=== PATIENT | male | born 1965 | race Caucasian/White ===

== ENCOUNTER 2020-09-20 11:46 | Outpatient (REF) | payer OTHER, SELFPAY ==
[2020-09-20 14:04] LABS: Glucose Urine UA NEG (NEG); Leukocyte Esterase Urine NEG (NEG); Nitrite Urine NEG (NEG); Urine Blood NEG (NEG); Urine Ketones 40 MG/DL (NEG); Urine Protein NEG (NEG-TRACE)
[2020-09-20 14:05] LABS: Appearance Urine CLEAR; Color Urine AMBER
[2020-09-20 14:18] LABS: Eosinophils Absolute Auto 0.1 X10*3/uL (0.0-0.4); Imm Gran Abs Auto 0.01 X10*3/uL (0.00-0.03); Imm Gran Pct Auto 0.3 % (0.0-0.4); Lymphocytes Percent Auto 34.9 % (20-40); MANUAL DIFF FLAG SCAN; Mean Corpuscular HGB Conc 33.3 g/dl (31.0-36.0); Mean Corpuscular Hemoglobin 34.5 pg (27.0-33.0); Mean Corpuscular Volume 103.4 fL (80-98); Mean Platelet Volume 9.6 fL (9.4-12.4); Monocytes Absolute Auto 1.3 X10*3/uL (0.1-1.2); Monocytes Percent Auto 44.7 % (2-11); Neutrophils Absolute Auto 0.5 X10*3/uL (2.0-8.3); Neutrophils Percent Auto 17.1 % (45-73); Platelet Count 305 X10*3/uL (160-400); Red Blood Count 3.77 X10*6/uL (4.60-5.80); Red Cell Distribution Width 12.6 % (11.0-16.0); SCAN SMEAR FLAG 1
[2020-09-20 14:42] LABS: Alanine Aminotransferase 91 U/L (0-40); Albumin Level 4.4 g/dL (3.5-5.0); Alkaline Phosphatase 78 U/L (39-117); Amylase 188 U/L (28-100); Anion Gap 15 (12-20); Aspartate Amino Transferase 75 U/L (5-37); Bilirubin Total 1.3 mg/dL (0.0-1.0); Blood Urea Nitrogen 20 mg/dL (9-16); Calcium 9.3 mg/dL (8.4-10.2); Carbon Dioxide 21 mmol/L (22-29); Chloride 99 mmol/L (96-108); Estimated Glomerular Filt Rate > 60; Glucose Random 102 mg/dL (60-115); Lipase 35 U/L (8-78); Potassium 5.4 mmol/L (3.3-5.1); Sodium 130 mmol/L (135-145); Total Protein 7.9 g/dL (6.5-8.0)
[2020-09-20 14:46] LABS: SLIDE REVIEW VERIFIED
== END 2020-09-20 11:47 | disposition home or self-care (01) ==
LOC: HO.HMGCLDS 11:46
PROVIDERS: PCP Internal Medicine; Visit Provider Nurse Practitioner Family
DX: R10.9 Unspecified abdominal pain (principal)
CPT/HCPCS: 36415; 80053; 81003; 82150; 83690; 85025

== ENCOUNTER 2020-09-21 13:27 | Emergency (ER) | payer OTHER, SELFPAY ==
--- NOTE | ~2020-09-21 | CT_ITS ---
EXAMINATION: CT ABDOMEN AND PELVIS WITH CONTRAST CLINICAL INFORMATION: Left lower quadrant pain. Prior history diverticulitis. COMPARISON: CT abdomen and pelvis with contrast 10/09/2018, 01/27/2015 TECHNIQUE: Multidetector volumetric images were obtained from the superior aspect of the liver through the pubic symphysis following administration 85 mL of Omnipaque 350 intravenous contrast. Sagittal and coronal reformatted images were obtained on the technologist's workstation. Oral contrast: No This CT examination was performed using dose optimization techniques as appropriate, variously including the following: *Automated exposure control *Adjustment of mA and/or kV according to patient size (this includes techniques or standardized protocols for targeted exams where dose is matched to indication/reason for exam; i.e. extremities or head) *Use of iterative reconstruction technique DLP: 757 mGy-cm FINDINGS: LUNG BASES: The visualized lung bases are unremarkable. LIVER, GALLBLADDER, AND BILIARY TREE: Liver is normal in size and smooth in contour and homogeneous. There is diffuse hepatic steatosis. No focal hepatic parenchymal lesion or intrahepatic ductal dilatation. The gallbladder is unremarkable with no evidence of radiopaque gallstones, gallbladder wall thickening, or obvious pericholecystic inflammatory changes. PANCREAS: Unremarkable. SPLEEN: Unremarkable. ADRENAL GLANDS: Unremarkable. KIDNEYS AND URETERS: The kidneys are normal in size and enhance symmetrically. There are no calculi, hydronephrosis, hydroureter, or perinephric stranding. Again, there is a cyst left kidney 2.0 x 2.5 cm and punctate cyst right kidney. BLADDER: Unremarkable. GASTROINTESTINAL TRACT: There is mild inflammatory change around the posterior distal descending diverticula left lower quadrant (series 367, sagittal images 33-39). This is in same area of prior diverticulitis. There is no paracolic fluid collection, proximal obstruction, pneumatosis, free air, or ascites. The appendix is unremarkable. ABDOMINAL WALL: Borderline fat-containing umbilical hernia under 3 cm. Fatty fullness inguinal spermatic rings, greater on left. LYMPH NODES: No lymphadenopathy. VASCULAR: Unremarkable. PELVIC VISCERA: Unremarkable. OSSEOUS STRUCTURES: Unremarkable. CT/CT abdomen pelvis w con IMPRESSION: 1. Mild diverticulitis distal descending colon in similar area of prior episodes. 2. No proximal obstruction, pericolic fluid, or ascites.
[2020-09-21 13:29] VITALS: BP 148/85; PULSE 101; RESP 16; TEMP 37.1; O2SAT 98; BMI 32.1
--- NOTE | 2020-09-21 13:42 | ED_ITS ---
HPI - Abdominal Pain General Chief Complaint: Abdominal Pain Stated Complaint: diverticulitis Time Seen by Provider: 09/21/20 13:33 Source: patient and old records reviewed Mode of arrival: ambulatory Limitations: no limitations History of Present Illness HPI narrative: 55 yo male with recurrent diverticulitis started on flagyl/levofloxacin yesterday able to tolerate and take today referred to ED by urgent care center for CT scan c/o pain and diarrhea MD elicited complaint: abdominal pain Pertinent past history: diverticulitis Onset (ago): day(s) (4) Pain Consistency: constant Location: LLQ Severity: moderate Quality: aching Radiation: LLQ Migration to: no migration Exacerbating factors: movement Relieving factors: nothing Context: history of similar episodes Associated symptoms: diarrhea Treatments prior to arrival: other (took flagyl and levofloxacin today ) Related Data Previous Rx's Medication Instructions Recorded lisinopril 40 mg tablet 40 mg PO DAILY #90 tab 05/23/20 levofloxacin 750 mg tablet 750 mg PO DAILY 10 Days #10 tab 09/20/20 metronidazole 500 mg tablet 500 mg PO BID 10 Days #20 tab 09/20/20 Allergies Allergy/AdvReac Type Severity Reaction Status Date / Time No Known Allergies Allergy Unverified 09/20/20 11:18 Review of Systems Review of Systems Constitutional : No Weight loss, No Fever, No Chills ENT/Mouth : No sore throat, No Rhinorrhea Eyes: No Swelling, No Redness Cardiovascular : No Chest Pain, No SOB, NoEdema Respiratory : No Cough, No Sputum, No Wheezing Gastrointestinal : no Nausea, no Vomiting, positive Diarrhea, positive abdominal Pain, No Hematochezia, No Melena Genitourinary : No Dysuria, No Urinary Frequency, No Hematuria, No Urgency Musculoskeletal : No joint pain, No Myalgias, No Joint Swelling Skin : No Skin Lesions, No rash Neuro : No Weakness, No Numbness, No Dizziness, No Headache Psych : No Anxiety/Panic, No Depression Heme/Lymph: No Bruising, No Lymphadenopathy Endocrine : No Polyuria, No Polydipsia All other systems reviewed and are negative. Physical Exam Vital Signs: Vital Signs: Last Vital Signs Temp 99.3 F 09/21/20 14:26 Pulse 97 09/21/20 14:26 Resp 16 09/21/20 14:26 BP 112/73 09/21/20 14:26 Pulse Ox 97 09/21/20 14:26 Body Mass Index 32.1 Appearance: Alert. Oriented X3. No acute distress. Eyes: Pupils equal, round and reactive to light. ENT: Pharynx normal. Neck: Normal inspection. Neck supple. CVS: Normal heart rate and rhythm. Pulses normal. Respiratory: No respiratory distress. Breath sounds normal. Abdomen: Soft and moderate LLQ ttp no rebound or guarding Skin: Skin warm and dry. Normal skin color. Normal skin turgor. Extremities: No lower extremity edema. No calf ttp Neuro: Oriented X 3. No motor deficit. No sensory deficit. Course Course Course Narrative: low Na drinks excessive water thought it wsa a good thing, also has been drinking ETOH likely cause of LFTs - discussed abstaining as well as flagyl reaction, no WBC count afebrile not toxic, mild diverticulitis can continue outpatient care MDM - Abdominal Pain MDM Narrative Medical decision making narrative: 55 yo male hx of recurrent diverticulitis already on antibiotics at this time will repeat labs, CT scan to evaluate extent of disease, deferred pain medications - dispo per results and findings. Lab Data Result diagrams: 09/21/20 14:14 09/21/20 14:13 Labs: Lab Results 09/21/20 09/21/20 09/21/20 Range/Units 14:13 14:13 14:13 WBC (4.8-10.8) X10*3/uL RBC (4.60-5.80) X10*6/uL Hgb (14.0-18.0) g/dl Hct (42-52) % MCV (80-98) fL MCH (27.0-33.0) pg MCHC (31.0-36.0) g/dl RDW (11.0-16.0) % Plt Count (160-400) X10*3/uL MPV (9.4-12.4) fL Immature Gran % (Auto) (0.0-0.4) % Neut % (Auto) (45-73) % Lymph % (Auto) (20-40) % [place] % (Auto) (2-11) % Eos % (Auto) (0-4) % Baso % (Auto) (0-2) % Lymph # (Auto) (1.2-4.9) X10*3/uL [place] # (Auto) (0.1-1.2) X10*3/uL Eos # (Auto) (0.0-0.4) X10*3/uL Baso # (Auto) (0.0-0.2) X10*3/uL Abs Immat Gran (auto) (0.00-0.03) X10*3/uL Absolute Neuts (auto) (2.0-8.3) X10*3/uL Absolute Nucleated RBC (0.0-0.012) X10*3/uL Nucleated RBC % (auto) (0.0-0.2) /100WBC Smear Tech's Comments Hold Blue Top SEE NOTE Sodium 131 L (135-145) mmol/L Potassium 4.8 (3.3-5.1) mmol/L Chloride 101 (96-108) mmol/L Carbon Dioxide 21 L (22-29) mmol/L Anion Gap 14 (12-20) BUN 17 H (9-16) mg/dL Creatinine 1.02 (0.5-1.4) mg/dL Estim Creat Clear Calc 99.4 Estimated GFR > 60 Random Glucose 112 (60-115) mg/dL Lactic Acid 1.1 (0.5-2.0) mmol/L Calcium 8.9 (8.4-10.2) mg/dL Total Bilirubin 1.3 H (0.0-1.0) mg/dL Direct Bilirubin 0.8 H (0.0-0.5) mg/dL AST 48 H (5-37) U/L ALT 71 H (0-40) U/L Alkaline Phosphatase 70 (39-117) U/L Total Protein 7.6 (6.5-8.0) g/dL Albumin 4.1 (3.5-5.0) g/dL Lipase 29 (8-78) U/L 03// Range/Units 14:14 WBC 2.8 L (4.8-10.8) X10*3/uL RBC 3.69 L (4.60-5.80) X10*6/uL Hgb 13.0 L (14.0-18.0) g/dl Hct 37.5 L (42-52) % MCV 101.6 H (80-98) fL MCH 35.2 H (27.0-33.0) pg MCHC 34.7 (31.0-36.0) g/dl RDW 12.5 (11.0-16.0) % Plt Count 239 (160-400) X10*3/uL MPV 8.8 L (9.4-12.4) fL Immature Gran % (Auto) 0.0 (0.0-0.4) % Neut % (Auto) 19.7 L (45-73) % Lymph % (Auto) 31.3 (20-40) % [place] % (Auto) 46.5 H (2-11) % Eos % (Auto) 1.8 (0-4) % Baso % (Auto) 0.7 (0-2) % Lymph # (Auto) 0.9 L (1.2-4.9) X10*3/uL [place] # (Auto) 1.3 H (0.1-1.2) X10*3/uL Eos # (Auto) 0.1 (0.0-0.4) X10*3/uL Baso # (Auto) 0.0 (0.0-0.2) X10*3/uL Abs Immat Gran (auto) 0.00 (0.00-0.03) X10*3/uL Absolute Neuts (auto) 0.6 L (2.0-8.3) X10*3/uL Absolute Nucleated RBC 0.000 (0.0-0.012) X10*3/uL Nucleated RBC % (auto) 0.0 (0.0-0.2) /100WBC Smear Tech's Comments VERIFIED Hold Blue Top Sodium (135-145) mmol/L Potassium (3.3-5.1) mmol/L Chloride (96-108) mmol/L Carbon Dioxide (22-29) mmol/L Anion Gap (12-20) BUN (9-16) mg/dL Creatinine (0.5-1.4) mg/dL Estim Creat Clear Calc Estimated GFR Random Glucose (60-115) mg/dL Lactic Acid (0.5-2.0) mmol/L Calcium (8.4-10.2) mg/dL Total Bilirubin (0.0-1.0) mg/dL Direct Bilirubin (0.0-0.5) mg/dL AST (5-37) U/L ALT (0-40) U/L Alkaline Phosphatase (39-117) U/L Total Protein (6.5-8.0) g/dL Albumin (3.5-5.0) g/dL Lipase (8-78) U/L Discharge Plan Discharge Clinical Impression: Diverticulitis, Elevated liver function tests Patient Disposition: Home, Self-Care Instructions: Diverticulitis (ED) Additional Instructions: return to ED for any worsening symptoms or concerns stop drinking alcohol, RECHECK chemistry in 5 days continue antibiotics you only need to drink about 64 ounces of water a day Prescriptions: No Action lisinopril 40 mg tablet 40 mg PO DAILY Qty: 90 RF: 3 metronidazole 500 mg tablet 500 mg PO BID 10 Days Qty: 20 RF: 0 levofloxacin 750 mg tablet 750 mg PO DAILY 10 Days Qty: 10 RF: 0 Referrals: Etta Bocanegra MD [Primary Care Provider] - 5 days Stand Alone Forms: Work/School Release [facility] Past Medical History Attestation statement: The following information was validated with the patient. Medical History Diverticulitis HTN (hypertension) Social History Social History (Updated 09/21/20 @ 13:49 by Bernadette Guardado DO) Alcohol intake: current Alcohol intake frequency: 0-2 drinks per day Alcohol type: beer and hard liquor Smoking Status: Never smoker Use of substances other than those prescribed or required for medical reasons: No Advance Directives: No Advance Directives Information Provided: No
[2020-09-21 14:21] LABS: Basophils Percent Auto 0.7 % (0-2); Eosinophils Absolute Auto 0.1 X10*3/uL (0.0-0.4); Eosinophils Percent Auto 1.8 % (0-4); Lymphocytes Absolute Auto 0.9 X10*3/uL (1.2-4.9); Lymphocytes Percent Auto 31.3 % (20-40); MANUAL DIFF FLAG SCAN; Mean Corpuscular HGB Conc 34.7 g/dl (31.0-36.0); Mean Corpuscular Hemoglobin 35.2 pg (27.0-33.0); Mean Corpuscular Volume 101.6 fL (80-98); Mean Platelet Volume 8.8 fL (9.4-12.4); Monocytes Absolute Auto 1.3 X10*3/uL (0.1-1.2); Monocytes Percent Auto 46.5 % (2-11); Neutrophils Absolute Auto 0.6 X10*3/uL (2.0-8.3); Neutrophils Percent Auto 19.7 % (45-73); Platelet Count 239 X10*3/uL (160-400); Red Blood Count 3.69 X10*6/uL (4.60-5.80); Red Cell Distribution Width 12.5 % (11.0-16.0); SCAN SMEAR FLAG 1; White Blood Count 2.8 X10*3/uL (4.8-10.8)
[2020-09-21 14:25] LABS: Hematocrit 37.5 % (42-52)
[2020-09-21 14:26] VITALS: BP 112/73; PULSE 97; RESP 16; TEMP 37.4; O2SAT 97
[2020-09-21] MEDS: 0.9 % Sodium Chloride 1,000 ML 999 ML IVCONT (14:33)
[2020-09-21 14:41] LABS: Lactic Acid 1.1 mmol/L (0.5-2.0)
[2020-09-21 14:45] LABS: SLIDE REVIEW VERIFIED
[2020-09-21 14:48] LABS: Alanine Aminotransferase 71 U/L (0-40); Albumin Level 4.1 g/dL (3.5-5.0); Alkaline Phosphatase 70 U/L (39-117); Anion Gap 14 (12-20); Aspartate Amino Transferase 48 U/L (5-37); Bilirubin Direct 0.8 mg/dL (0.0-0.5); Bilirubin Total 1.3 mg/dL (0.0-1.0); Blood Urea Nitrogen 17 mg/dL (9-16); Calcium 8.9 mg/dL (8.4-10.2); Carbon Dioxide 21 mmol/L (22-29); Chloride 101 mmol/L (96-108); Creatinine Clr Calc Pharmacy 99.4; Estimated Glomerular Filt Rate > 60; Glucose Random 112 mg/dL (60-115); Lipase 29 U/L (8-78); Potassium 4.8 mmol/L (3.3-5.1); Sodium 131 mmol/L (135-145); Total Protein 7.6 g/dL (6.5-8.0)
--- NOTE | 2020-09-21 14:58 | PC.NURSE ---
pt to ct scan
[2020-09-21] MEDS: iohexoL 350 MG/ML 100 ML INFUS..BTL IV (15:07)
--- NOTE | 2020-09-21 15:22 | PC.NURSE ---
pt alert and oriented x3. lung sounds clear bilaterally no signs of respiratory distress noted, respiratory effort is non-labored, depth and rate normal, heart rate and heart sounds normal, bowel sounds active x4, abdominal inspection showed no discoloration, no deformities or distention. pt denies n/v. pt states he does not have any pain at rest but when he palpates his lower left quadrant he has 5/10 pain. pt refused IV morphine and IV zofran, 20g in right hand inserted using vein scanner, normal saline 1L infusing by gravity. bedside junior sales assistant applied, normal sinus rhythm noted. pt instructed that if his pain increases to make RN aware. pt currently resting comfortably in bed in semi fowlers. call liu in reach. aware.
--- NOTE | 2020-09-21 16:10 | PC.NURSE ---
second set of blood cultures obtained
[2020-09-21 16:33] LABS: COVID-19 Test Negative (Negative)
== END 2020-09-21 16:23 | disposition home or self-care (01) ==
PROVIDERS: Emergency Provider Emergency Medicine; PCP Internal Medicine
DX: K57.32 Diverticulitis of large intestine without perforation or abscess without bleeding (principal); R79.89 Other specified abnormal findings of blood chemistry; Z20.822 Contact with and (suspected) exposure to COVID-19; F10.988 Alcohol use, unspecified with other alcohol-induced disorder; I10 Essential (primary) hypertension; Z79.899 Other long term (current) drug therapy
CPT/HCPCS: 36415; 74177; 80048; 80076; 83605; 83690; 85025; 87040; 87635; 96360; 96361; 99284; 99285; Q9967

== ENCOUNTER → 2020-10-27 08:26 | Outpatient (BNVA) | payer OTHER, SELFPAY | PROVIDERS: PCP Internal Medicine; Visit Provider Surgery ==

== ENCOUNTER 2020-12-27 06:20 | Inpatient (IN) | payer OTHER, SELFPAY ==
[2020-12-22 10:25] VITALS: BMI 31.4
--- NOTE | 2020-12-22 14:39 | P.CONAN_ITS ---
Documented by User: Mary Cruz 12/22/20 14:42 HPI - Anesthesia Eval Consult details Narrative: 55yo M for Hand Assisted Laparoscopic Sigmoidectomy Colectomy Repeat labs DOS. Low Na in ED (was drinking excessive water and instructed to limit to 64 oz by ED MD) PMFSH Active Problems Active Problems: All Active Problems (Updated 12/22/20 @ 10:25 by Evelyn Worley) Abdominal pain (Acute) Sigmoid diverticulitis (Acute) Past Medical History Medical History COVID-19 vaccine series completed Diverticulitis HTN (hypertension) Mild heartburn Sigmoid diverticulitis Family History Family History Father Liver cancer Skin cancer Surgical History Surgical History Hx of colonoscopy S/P excision of lipoma S/P right knee arthroscopy Social History Social History Are you a primary care coordination manager to a significant other at home: No Do you presently have visiting nurse or other home services: No Alcohol intake: current Alcohol intake frequency: a few times a week Alcohol type: beer and hard liquor Patient Tobacco Use Status: Former Tobacco user Quit Date: 20 years ago Tobacco use type: Cigarette Use of substances other than those prescribed or required for medical reasons: No Have you been hit, kicked, punched, or otherwise hurt by someone within the past year? If so, by whom?: No Are you DNR?: No Advance Directives: No Advance Directives Information Provided: No Advance Directives on File: No Recently lost weight without trying: No Eating poorly because of decreased appetite: No Nutrition Risks: No Nutritional Risk Meds Allergies Allergy/AdvReac Type Severity Reaction Status Date / Time No Known Allergies Allergy Verified 12/27/20 06:17 Exam Exam Date and Time: December 22, 2020 1439 Height,Weight and Vital Signs: Height 5 ft 11 in Weight 102.058 kg Narrative Narrative: EKG 09/2020 NSR Assessment and Plan Assessment Anesthesia Assessment: Chart Reviewed Documented by User: Mariela Rascon 12/27/20 07:09 PMF Past Medical History Medical History COVID-19 vaccine series completed Diverticulitis HTN (hypertension) Mild heartburn Sigmoid diverticulitis Family History Family History Father Liver cancer Skin cancer Surgical History Surgical History Hx of colonoscopy S/P excision of lipoma S/P right knee arthroscopy Social History Social History Are you a primary care coordination manager to a significant other at home: No Do you presently have visiting nurse or other home services: No Alcohol intake: current Alcohol intake frequency: a few times a week Alcohol type: beer and hard liquor Patient Tobacco Use Status: Former Tobacco user Quit Date: 20 years ago Tobacco use type: Cigarette Use of substances other than those prescribed or required for medical reasons: No Have you been hit, kicked, punched, or otherwise hurt by someone within the past year? If so, by whom?: No Are you DNR?: No Advance Directives: No Advance Directives Information Provided: No Advance Directives on File: No Recently lost weight without trying: No Eating poorly because of decreased appetite: No Nutrition Risks: No Nutritional Risk Meds Allergies Allergy/AdvReac Type Severity Reaction Status Date / Time No Known Allergies Allergy Verified 12/27/20 06:17 Exam Airway Mallampati Class: II TM Dist: >3cm Neck ROM: Full Assessment and Plan Assessment Anesthesia Assessment: Anesthesia Plan Discussed Final Anesthetic Review NPO: Yes ASA Class: II Final Preanesthetic Review: No Changes in Pt Med Stat, Meds/Allgs Chart Reviewed, Consent Obtained/Reviewed and Anes Risks/Benef Reviewed Patient Risk: Low Procedure Risk: Intermediate Assessment/Block/Sedation in SS: Assess/Block/Sedation-SS Anesthetic Plan Anesthetic Plan: GA Disposition: Standard PACU
[2020-12-27] VITALS (13 sets, daily range): BP systolic 93–149; BP diastolic 51–70; PULSE 47–77; RESP 12–20; TEMP 36.1–36.9; O2SAT 93–98
[2020-12-27 06:40] LABS: Hematocrit 45.4 % (42-52); Hemoglobin 15.5 g/dl (14.0-18.0); Mean Corpuscular HGB Conc 34.1 g/dl (31.0-36.0); Mean Corpuscular Hemoglobin 35.8 pg (27.0-33.0); Mean Corpuscular Volume 104.8 fL (80-98); Mean Platelet Volume 9.1 fL (9.4-12.4); Platelet Count 276 X10*3/uL (160-400); Red Blood Count 4.33 X10*6/uL (4.60-5.80); Red Cell Distribution Width 12.2 % (11.0-16.0); White Blood Count 3.2 X10*3/uL (4.8-10.8)
[2020-12-27 06:59] LABS: Anion Gap 15 (12-20); Blood Urea Nitrogen 21 mg/dL (9-16); Carbon Dioxide 19 mmol/L (22-29); Chloride 103 mmol/L (96-108); Estimated Glomerular Filt Rate 48; Glucose Fasting 90 mg/dL (60-99); Potassium 4.9 mmol/L (3.3-5.1); Sodium 132 mmol/L (135-145)
[2020-12-27] MEDS: Lactated Ringers 1,000 ML 100 ML IVCONT (07:01)
[2020-12-27 07:13] LABS: COVID-19 Test Negative (Negative)
--- NOTE | 2020-12-27 07:14 | MHC.SHP ---
Pre-Procedural Eval Section A The patient is an INPATIENT: No Changes since office visit: Yes Patient answered all questions; No Cold of Flu in the past 2 weeks, No New Medical Problems and No Changes in Medication The History & Physical has been completed within 30 days and I have reviewed it.: No Section B Chief Complaint: s/p Sigmoid colectomy Details of Present Illness: recurrent episodes of sigmoid diverticulitis requiring IV and PO antibiotics presenting today for a hand assisted laparoscopic sigmoid colectomy Relevant Family History (Specify if Yes): No Relevant Social History: None Present Medications: see Short Stay Collaborative assessment Medical History: No relevant PMH History of Previous Operations: No relevant previous surgery Allergies: Allergies Allergy/AdvReac Type Severity Reaction Status Date / Time No Known Allergies Allergy Verified 12/27/20 06:17 Review of Systems Sugical H&P ROS: Negative: Constitution, Cardiovascular, Respiratory, Neurological, Psychiatric, Hem-Onc, Allergic/Immunologic, Gastrointestinal, Genitourinary, Musculoskeletal, Integumentary, Endocrine and Eyes/Ears/Nose/Throat Exam Surgical H&P Exam: Normal: HEENT, Normal: Heart, Normal: Lungs, Normal: Extremities, Normal: Abdomen, Normal: Skin and Normal: Neurological Plan Diagnosis/Plan: Unchanged I have reviewed the history and physical and performed a pertinent physical examination on my patient. No changes have occurred unless specified.
--- NOTE | 2020-12-27 10:45 | W.PM.OPN ---
Operative Note Operative Note Date of Service: 12/27/20 Narrative: Preoperative diagnosis: Sigmoid diverticulitis Postoperative diagnosis: Same Procedure: Hand assisted laparoscopic sigmoid resection, mobilization of splenic flexure laparoscopic, colorectal anastomosis Surgeon: Byron Arriaga MD Mineral Surveyor: Alfred Esposito MD Anesthesia: General endotracheal Indications for procedure: 55-year-old male patient with repeated episodes of sigmoid diverticulitis requiring hospital admission IV antibiotics presenting now for elective sigmoid resection. Patient underwent CT of the abdomen and pelvis which revealed a small area of chronic changes without abscess suggestive of sigmoid diverticulitis. Operative findings: Patient found to have an area at the distal descending proximal sigmoid colon with thickened wall densely adherent to the sidewall consistent with chronic sigmoid diverticulitis. No abscess was identified. Specimen: Sigmoid colon Estimated blood loss: 50 mL Complications: None Procedure details: Patient was brought to the OR and placed in a supine position. After administering general anesthesia the patient's abdomen was prepped with ChloraPrep and draped in a sterile fashion. A surgical time-out was called the consent confirmed. Patient received preoperative antibiotics and Venodyne boots were in place. Local anesthesia consisting of 0.25% Sensorcaine with epinephrine was infiltrated in the lower midline. A 7.5 cm incision was made in the lower midline just above the pubis. This was carried out through subcutaneous tissue past linea alba into the peritoneum. A hand port was then inserted and the abdomen insufflated to a pressure of 15 mm of mercury. A 12 mm trocar was then placed in the upper midline and a 5 mm trocar placed in the left upper quadrant. The patient was rotated to a right lateral decubitus position. Dissection was begun on sigmoid colon and descending colon along the white line of Toldt. This was mobilized using the LigaSure extending up towards the splenic flexure. Hemostasis was assured using the LigaSure. The omentum was dissected off the distal transverse colon to enter the lesser sac and mobilized the splenic flexure from proximal to distal. This was then continued around the splenic flexure down the left gutter. Dissection was continued down along the sigmoid colon to removed from the densely adherent sidewall. This was then continued down to the sacral prominence. An area is slightly proximal to the area of sigmoid diverticulitis was dissected below the mesentery approximately 5 cm proximal. An Endo-MOY stapler was then used to divide the bowel proximal to the areas sigmoid diverticulitis. LigaSure was then used to divide the mesentery along the sigmoid colon down to the sacral prominence. This was continued down to the proximal rectum at which point a curved linear stapler was used to divide and cut the bowel. This was sent as specimen labeled as sigmoid colon. At this point the descending colon was checked for length to allow for relaxed anastomosis. Additional dissection along the left line of Toldt was performed to assure a relax anastomosis. At this point a pursestring was placed using the pursestring clamp. The bowel was incised using EEA sizers. A 28 Upper Sorbian was determined to be the appropriate size. The staple was then obtained and the anvil placed in the descending colon. The pursestring was then tied off. Overlying fatty tissue was dissected off bowel. Dr. Esposito then dilated the rectum using the EEA sizers. The EEA stapler was then inserted up the rectum and found to easily reach the staple line. The spike was passed just below the staple line and connected to the anvil. Dr. Esposito was then fired the stapler to create the and had anastomosis. A leak test was then performed by instilling air into the rectum with saline in the pelvis. No leak could be identified. Wounds were then checked for bleeding, irrigated and suctioned dry. CO2 was then evacuated and all trocars removed. Peritoneum was then closed using a running 0 Polysorb suture. Fascia was closed using a 1 Maxon suture in a running fashion. The 12 mm port site was fascia was closed using a 0 Polysorb suture. Skin was closed in all incisions using a skin stapler. Sterile dressings were then applied. The patient tolerated the procedure well. Sponge, instrument, needle counts reported as correct. The patient was transferred to PACU in stable condition.
[2020-12-27] MEDS: HYDROmorphone HCl 0.5 MG/0.5 ML SYRINGE IVPUSH ×2 (10:56→11:04)
[2020-12-27] MEDS: Dextrose 5 % and Lactated Ring 1,000 ML 125 ML IVCONT ×2 (12:51→20:55)
[2020-12-27] MEDS: oxyCODONE HCl Immed Release 5 MG TABLET PO ×2 (13:32→23:54)
[2020-12-27] MEDS: 0.9 % Sodium Chloride Flush 3 ML SYRINGE IVFLUSH (23:53)
[2020-12-28] VITALS (9 sets, daily range): BP systolic 107–128; BP diastolic 64–85; PULSE 52–65; RESP 14–20; TEMP 36.1–36.7; O2SAT 94–96
[2020-12-28] MEDS: Dextrose 5 % and Lactated Ring 1,000 ML 125 ML IVCONT ×3 (06:14→20:58)
[2020-12-28 06:49] LABS: Basophils Percent Auto 0.3 % (0-2); Eosinophils Percent Auto 0.7 % (0-4); Hematocrit 39.1 % (42-52); Hemoglobin 13.4 g/dl (14.0-18.0); Imm Gran Abs Auto 0.01 X10*3/uL (0.00-0.03); Imm Gran Pct Auto 0.3 % (0.0-0.4); Lymphocytes Absolute Auto 0.9 X10*3/uL (1.2-4.9); Lymphocytes Percent Auto 29.3 % (20-40); MANUAL DIFF FLAG SCAN; Mean Corpuscular HGB Conc 34.3 g/dl (31.0-36.0); Mean Corpuscular Hemoglobin 36.5 pg (27.0-33.0); Mean Corpuscular Volume 106.5 fL (80-98); Mean Platelet Volume 9.4 fL (9.4-12.4); Monocytes Absolute Auto 1.8 X10*3/uL (0.1-1.2); Monocytes Percent Auto 58.9 % (2-11); Neutrophils Absolute Auto 0.3 X10*3/uL (2.0-8.3); Neutrophils Percent Auto 10.5 % (45-73); Platelet Count 274 X10*3/uL (160-400); Red Blood Count 3.67 X10*6/uL (4.60-5.80); SCAN SMEAR FLAG 1
[2020-12-28 07:07] LABS: Anion Gap 14 (12-20); Blood Urea Nitrogen 13 mg/dL (9-16); Calcium 9.3 mg/dL (8.4-10.2); Carbon Dioxide 21 mmol/L (22-29); Chloride 102 mmol/L (96-108); Creatinine Clr Calc Pharmacy 116.6; Estimated Glomerular Filt Rate > 60; Glucose Random 129 mg/dL (60-115); Sodium 132 mmol/L (135-145)
[2020-12-28 07:21] LABS: SLIDE REVIEW VERIFIED
[2020-12-28] MEDS: Morphine Sulfate 2 MG/ML CARTRIDGE 4 MG IVPUSH ×2 (07:43→17:27)
[2020-12-28] MEDS: lisinopriL 40 MG TABLET PO (08:34)
[2020-12-28] MEDS: oxyCODONE HCl Immed Release 5 MG TABLET PO ×2 (08:50→23:28)
--- NOTE | 2020-12-28 09:15 | PM.PNGS ---
Subjective Subjective Date of Service: 12/28/20 Interval history: Pod 1 status post hand assisted laparoscopic sigmoid colectomy for sigmoid diverticulitis. He reports an improvement in his abdominal pain this morning and is mainly been taking IV Tylenol. He has not taken morphine. Reports passing a small amount of flatus this morning. Denies nausea or vomiting he is tolerating clear liquids but is not interested in advancing his diet just yet. Physical Exam Vital Signs: Vital Signs: Last Vital Signs Temp 98.1 F 12/28/20 07:44 Pulse 62 12/28/20 08:34 Resp 18 12/28/20 07:44 BP 128/85 12/28/20 08:34 Pulse Ox 96 12/28/20 07:44 Body Mass Index 31.4 Const: Other: Awake alert, in no acute distress Resp: Other: Breathing comfortably on room air, no respiratory distress GI: Other: Small amount of standing on dressings otherwise wounds are clean and intact. Abdominal distension is improved. Skin: Other: Warm, dry, no rash Extrem: Other: No edema Progress Note: A&P Assessment and plan (1) Sigmoid diverticulitis: Status: Acute Assessment and Plan: Patient is now postoperative day 1 following hand assisted laparoscopic sigmoid colectomy for sigmoid diverticulitis. He tolerated the procedure well but continues to have some abdominal discomfort. We will continue with the liquid diet. He was encouraged to ambulate and perform incentive spirometry. Monteiro catheter should be removed today which will help with ambulation. Laboratories are okay this morning. Fall Risk Details Current Medications: Current Medications Generic Name Dose Route Start Last Admin Trade Name Freq PRN Reason Stop Dose Admin Al Hydroxide/Mg Hydroxide 30 ml 12/27/20 12:29 Magnesium Hydrox/Alum Hydrox 30 Ml Oral.Susp PO Q4H PRN Heartburn/Nausea Alvimopan 12 mg 12/27/20 21:00 12/28/20 08:34 Alvimopan 12 Mg Capsule PO 01/03/21 21:01 12 mg BID MARIA C Administration Dextrose/Lactated Ringer's 1,000 mls @ 125 mls/hr 12/27/20 12:29 12/28/20 06:14 D5lr IVCONT 125 mls/hr .Q8H MARIA C Administration Lisinopril 40 mg 12/28/20 09:00 12/28/20 08:34 Lisinopril 40 Mg Tablet PO 40 mg DAILY MARIA C Administration Protocol Morphine Sulfate 4 mg 12/27/20 12:29 12/28/20 07:43 Morphine Sulfate 2 Mg/Ml Cartridge IVPUSH 4 mg Q3H PRN Administration Pain, Severe (Pain Scale 7-10) Ondansetron HCl 4 mg 12/27/20 12:29 Ondansetron Hcl 4 Mg/2 Ml Vial IVPUSH Q8H PRN Nausea Oxycodone HCl 5 mg 12/27/20 12:29 12/28/20 08:50 Oxycodone Hcl Immed Release 5 Mg Tablet PO 5 mg Q6H PRN Administration Pain, Moderate (Pain Scale 4-6 Sodium Chloride 3 ml 12/27/20 16:00 12/28/20 07:19 0.9 % Sodium Chloride Flush 3 Ml Syringe IVFLUSH Not Given QSHIFT MARIA C Temazepam 15 mg 12/27/20 12:29 Temazepam 15 Mg Capsule PO BEDTIME PRN Insomnia Time Spent With Patient Time: Total time spent is greater than 50% in coordination of care (as documented) at patient's floor/unit and/or counseling patient: Time with patient: 15 - 24 minutes Procedures Date of Service Date of Service: 12/28/20
--- NOTE | 2020-12-28 09:51 | HO.POSTANES ---
Post Anesthesia Evaluation Post Anesthesia Evaluation Vital Signs: Vital Signs Temp Pulse Resp BP Pulse Ox 12/28/20 08:34 62 128/85 12/28/20 07:44 98.1 F 60 18 107/73 96 12/28/20 07:43 19 12/28/20 00:00 97.2 F 59 15 125/75 95 Anesthesia: General Endotracheal-GETA Mental Status: Awake Pain Control: Satisfactory Nausea/Vomiting: None Hydration: Adequate Anesthesia-Related Issues: No Anes. Related Issues
--- NOTE | 2020-12-28 11:30 | PC.NURSE ---
Patient connors catether removed this morning at 0730, patient has voided two times since then. Will continue to monitor urine output.
[2020-12-29 03:26] VITALS: BP 110/79; PULSE 55; RESP 15; TEMP 36.3; O2SAT 97
[2020-12-29] MEDS: Dextrose 5 % and Lactated Ring 1,000 ML 125 ML IVCONT (06:10)
[2020-12-29] MEDS: oxyCODONE HCl Immed Release 5 MG TABLET PO (07:29)
[2020-12-29] MEDS: lisinopriL 40 MG TABLET PO (07:30)
[2020-12-29 07:43] VITALS: BP 107/82; PULSE 50; RESP 18; TEMP 36.2; O2SAT 97
--- NOTE | 2020-12-29 07:43 | PM.PNGS ---
Subjective Subjective Date of Service: 12/29/20 Interval history: Complains of incisional pain, but is up and ambulating well. Tolerated regular diet yesterday without nausea or vomiting. Passing flatus this morning but no BM yet. Physical Exam Vital Signs: Vital Signs: Last Vital Signs Temp 97.4 F 12/29/20 03:26 Pulse 55 12/29/20 03:26 Resp 15 12/29/20 03:26 BP 110/79 12/29/20 03:26 Pulse Ox 97 12/29/20 03:26 Body Mass Index 31.4 Const: Other: alert and oriented; no acute distress Resp: Effort & Inspection: normal respiratory effort GI: Other: non-distended Skin: Other: warm and dry, no rash Extrem: General: No edema Progress Note: A&P Assessment and plan (1) Sigmoid diverticulitis: Status: Acute Assessment and Plan: POD #2 s/p ANGELA Sigmoid colectomy with colorectal anastomosis; patient is hemodynamically stable, and tolerating a regular diet. Path confirmed diverticulitis, no malignancy. He is passing flatus but no BM yet. Encouraged ambulation, IS. D/C to home if BM. Fall Risk Details Current Medications: Current Medications Generic Name Dose Route Start Last Admin Trade Name Freq PRN Reason Stop Dose Admin Al Hydroxide/Mg Hydroxide 30 ml 12/27/20 12:29 Magnesium Hydrox/Alum Hydrox 30 Ml Oral.Susp PO Q4H PRN Heartburn/Nausea Alvimopan 12 mg 12/27/20 21:00 12/29/20 07:30 Alvimopan 12 Mg Capsule PO 01/03/21 21:01 12 mg BID MARIA C Administration Dextrose/Lactated Ringer's 1,000 mls @ 125 mls/hr 12/27/20 12:29 12/29/20 06:10 D5lr IVCONT 125 mls/hr .Q8H MARIA C Administration Acetaminophen 1,000 mg in 100 mls @ 400 mls/hr 12/28/20 12:00 12/29/20 07:04 Ofirmev IV Infused Q6H MARIA C Infusion Lisinopril 40 mg 12/28/20 09:00 12/29/20 07:30 Lisinopril 40 Mg Tablet PO 40 mg DAILY MARIA C Administration Protocol Morphine Sulfate 4 mg 12/27/20 12:29 12/28/20 17:27 Morphine Sulfate 2 Mg/Ml Cartridge IVPUSH 4 mg Q3H PRN Administration Pain, Severe (Pain Scale 7-10) Ondansetron HCl 4 mg 12/27/20 12:29 Ondansetron Hcl 4 Mg/2 Ml Vial IVPUSH Q8H PRN Nausea Oxycodone HCl 5 mg 12/27/20 12:29 12/29/20 07:29 Oxycodone Hcl Immed Release 5 Mg Tablet PO 5 mg Q6H PRN Administration Pain, Moderate (Pain Scale 4-6 Sodium Chloride 3 ml 12/27/20 16:00 12/28/20 23:58 0.9 % Sodium Chloride Flush 3 Ml Syringe IVFLUSH Not Given QSHIFT MARIA C Temazepam 15 mg 12/27/20 12:29 Temazepam 15 Mg Capsule PO BEDTIME PRN Insomnia Time Spent With Patient Time: Total time spent is greater than 50% in coordination of care (as documented) at patient's floor/unit and/or counseling patient: Time with patient: 15 - 24 minutes Procedures Date of Service Date of Service: 12/29/20
--- NOTE | 2020-12-29 11:46 | PM.DS ---
DS: Providers Provider Date of Service: 12/29/20 Date of admission: 12/27/20 06:20 Date of discharge: 12/29/20 Primary care physician: Etta Bocanegra MD Admitting clinician: Byron Arriaga Attending physician on admission: Byron Arriaga DS: Diagnosis Discharge Diagnosis (1) Sigmoid diverticulitis: Status: Acute DS: Medications Discharge Medications Home Medications: Previous Rx's Medication Instructions Recorded lisinopril 40 mg tablet 40 mg PO DAILY #90 tab 05/23/20 oxycodone 5 mg PO Q6H PRN #14 tab 12/29/20 DS: Summary Hospital Course Hospital Course: Suraj Miller is a 55-year-old male patient presenting with recurrent history of diverticulitis occurring greater than 15 years usually associated with pain in the left lower quadrant and diarrhea. He has undergone multiple courses of IV antibiotic and oral antibiotics. He reports the frequency of attacks appear to be more frequent which is affecting his lifestyle. His most recent episode required a visit to the emergency department. CT of the abdomen pelvis did reveal an area of diverticulitis without abscess, perforation, or free air. He wishes to proceed with a surgical resection because of its recurrent nature. He currently reports abdominal pain in the left lower quadrant and loose stool. He denies fever or chill. On examination patient's abdomen is soft and nondistended. There is slight tenderness to palpation of the left lower quadrant without rebound, guarding, or rigidity. No masses are appreciated. He was admitted on 12/27/2020 as a short-stay admit. He underwent a hand assisted laparoscopic sigmoid colectomy with a colorectal anastomosis. He tolerated the procedure well and remained hemodynamically stable throughout his hospitalization. He was started on clear liquids on postoperative day 0 and tolerated this well. This was advanced to a regular soft diet on postoperative day 1. patient was ambulating well complaining mainly of incisional pain. On postoperative day 2 the patient was tolerating regular diet without nausea or vomiting. He did pass a bowel movement and flatus with improvement of his abdominal pain. He was able to ambulate independently as well. Patient is discharged to home in stable condition. He was instructed to continue to avoid lifting greater than 10 lb for the next month. He should remain on a regular low residue diet. I have asked him to return approximately 1 week for staple removal. He may remove the Tegaderm in 2-3 days. He may shower with or without the Tegaderm. He should return as needed for fever, chills, nausea, vomiting, increased abdominal pain. Time Spent with Patient Time attestation: Total time spent providing and/or coordinating discharge services: Discharge coordination time: Less than 30 minutes Quality: Stroke Does the patient have a stroke diagnosis?: No Physical Exam Vital Signs: Vital Signs: Last Vital Signs Temp 97.2 F 12/29/20 07:43 Pulse 50 12/29/20 07:43 Resp 18 12/29/20 07:43 BP 107/82 12/29/20 07:43 Pulse Ox 97 12/29/20 07:43 Body Mass Index 31.4 Const Other: alert and oriented; no acute distress Resp Effort & Inspection: normal respiratory effort GI Other: non-distended Skin Other: warm and dry, no rash Extrem General: No edema DS: Data Data Completed and Pending Completed studies during hospitalization [Text1]: Pending at discharge 12/27/20 09:14 Surgical [PTH] Routine Discharge Plan Discharge Patient Disposition: Home, Self-Care Discharge Diagnosis: Sigmoid diverticulitis, s/p sigmoid colectomy Referrals: Etta Bocanegra MD [Primary Care Provider] - 1 Week Discharge Medications: New oxycodone 5 mg tablet 5 mg PO Q6H PRN (Reason: pain) Qty: 14 RF: 0 Continued lisinopril 40 mg tablet 40 mg PO DAILY Qty: 90 RF: 3 Discontinued neomycin 500 mg tablet 1 g PO TID Qty: 6 RF: 0 erythromycin 500 mg tablet 1 g PO TID Qty: 6 RF: 0 Discharge Orders: Discharge Order (Routine); Ordered 12/29/20 Ordered By: Byron Arriaga Diet: regular diet Activity on Discharge: No heavy lifting Stand Alone Forms: Patient Portal Discharge page Activity Restrictions/Additional Instructions: If the incision area is tender, you may apply an ice pack for short intervals (No more than 20 minutes on, followed by at least 20 minutes off). Do not apply heat. Do not use creams, lotions, or topical antibiotics unless instructed to do so by your surgeon. These can cause infection or allergic reaction. Ok to shower. You have jasbir closing your incision and these will be removed approximately 10-14 days after surgery. Call Your Doctor If: -Your temperature exceeds 101.5? F -You experience excessive pain or swelling -You have an unexpected reaction to medication -You have excessive bleeding -You experience continued vomiting/nausea -Your incision begins to separate -Your incision shows signs of infection such as increased redness, swelling, excessive pain, drainage (light blood or clear fluid is normal) or heat Care Plan Goals: Return to normal activity and diet Health Concerns: Sigmoid diverticulitis Plan of Treatment: Status post sigmoid colectomy Assessment: Sigmoid diverticulitis Patient Instructions: Colectomy (DC) Discharge Date/Time: 12/29/20 12:44
[2020-12-29 12:00] VITALS: RESP 20
--- NOTE | 2020-12-29 13:22 | MHC.CM.PN ---
pt dcd home no skilled servceis ordered by
== END 2020-12-29 12:44 | disposition home or self-care (01) | DRG 231 ==
LOC: HO.SSSA 06:23 → HO.S3 11:15
PROVIDERS: Nurse Practitioner; Admitting Provider Surgery; PCP Internal Medicine; Visit Provider Surgery
PROC: 0DBN0ZZ Excision of Sigmoid Colon, Open Approach (ICD-10-PCS; principal; 2020-12-27 07:30)
DX: K57.32 Diverticulitis of large intestine without perforation or abscess without bleeding (principal); Z20.822 Contact with and (suspected) exposure to COVID-19; Z87.891 Personal history of nicotine dependence; Z79.899 Other long term (current) drug therapy
CPT/HCPCS: 36415; 80048; 85025; 85027; 86850; 86900; 86901; 87635; 88307; 99024; J0131; J1100; J1170; J1885; J2250; J2270; J2405; J3010

== ENCOUNTER → 2021-01-09 11:39 | Outpatient (BNVA) | payer OTHER, SELFPAY | PROVIDERS: PCP Internal Medicine; Visit Provider Surgery ==

== ENCOUNTER → 2021-02-02 11:05 | Outpatient (BNVA) | payer OTHER, SELFPAY | PROVIDERS: PCP Internal Medicine; Referring Provider Internal Medicine; Visit Provider Surgery ==

== ENCOUNTER → 2021-02-15 11:09 | Outpatient (BNVA) | payer OTHER, SELFPAY | PROVIDERS: PCP Internal Medicine; Referring Provider Internal Medicine; Visit Provider Surgery ==

== ENCOUNTER → 2021-03-08 11:28 | Outpatient (BNVA) | payer OTHER, SELFPAY | PROVIDERS: PCP Internal Medicine; Referring Provider Internal Medicine; Visit Provider Surgery ==

== ENCOUNTER 2021-06-08 09:51 | Day surgery (SDC) | payer OTHER, SELFPAY ==
[2021-06-01 16:22] VITALS: BMI 32.1
--- NOTE | 2021-06-07 13:32 | P.CONAN_ITS ---
Documented by User: Mary Cruz NP 06/07/21 13:35 HPI - Anesthesia Eval Consult details Narrative: 55yo M for Colonoscopy s/p lap bowel resect 12/2020 PMFSH Active Problems Active Problems: All Active Problems (Updated 02/15/21 @ 11:27 by Byron Arriaga MD) Anorexia (Acute) Abdominal pain (Acute) Past Medical History Medical History COVID-19 vaccine series completed Diverticulitis HTN (hypertension) Mild heartburn Sigmoid diverticulitis Family History Family History Father Liver cancer Skin cancer Surgical History Surgical History Hx of colonoscopy S/P excision of lipoma S/P laparoscopic colectomy (12/27/20) S/P right knee arthroscopy Social History Social History Household Members Other:: self Housing: Condominium Are you a primary child care education coordinator to a significant other at home: No Do you presently have visiting nurse or other home services: No Alcohol intake: current Alcohol intake frequency: a few times a week Alcohol type: beer and hard liquor Patient Tobacco Use Status: Former Tobacco user Quit Date: 20 years ago Tobacco use type: Cigarette Use of substances other than those prescribed or required for medical reasons: No Advance Directives: No Advance Directives Information Provided: Yes Meds Allergies Allergy/AdvReac Type Severity Reaction Status Date / Time No Known Allergies Allergy Verified 03/08/21 11:41 Home Medications Medication Instructions Recorded Confirmed Last Taken Type psyllium husk 0.52 gram capsule 0.52 g PO DAILY 03/08/21 Unknown History (Metamucil) Exam Exam Date and Time: June 07, 2021 1332 Height,Weight and Vital Signs: Height 5 ft 11 in Weight 104.326 kg Assessment and Plan Assessment Anesthesia Assessment: Chart Reviewed Documented by User: Loni Funez MD 06/08/21 10:26 PMFSH Past Medical History Medical History COVID-19 vaccine series completed Diverticulitis HTN (hypertension) Mild heartburn Sigmoid diverticulitis Family History Family History Father Liver cancer Skin cancer Surgical History Surgical History Hx of colonoscopy S/P excision of lipoma S/P laparoscopic colectomy (12/27/20) S/P right knee arthroscopy History of Problems with Anesthesia: No Social History Social History Household Members Other:: self Housing: Condominium Are you a primary child care education coordinator to a significant other at home: No Do you presently have visiting nurse or other home services: No Alcohol intake: current Alcohol intake frequency: a few times a week Alcohol type: beer and hard liquor Patient Tobacco Use Status: Former Tobacco user Quit Date: 20 years ago Tobacco use type: Cigarette Use of substances other than those prescribed or required for medical reasons: No Advance Directives: No Advance Directives Information Provided: Yes Meds Allergies Allergy/AdvReac Type Severity Reaction Status Date / Time No Known Allergies Allergy Verified 03/08/21 11:41 Home Medications Medication Instructions Recorded Confirmed Last Taken Type psyllium husk 0.52 gram capsule 0.52 g PO DAILY 03/08/21 Unknown History (Metamucil) Exam Airway Mallampati Class: II TM Dist: >3cm Neck ROM: Full Loose/Missing/Broken Teeth: No Heart: RRR Lungs: CTA Assessment and Plan Assessment Anesthesia Assessment: Anesthesia Plan Discussed Final Anesthetic Review History of Problems with Anesthesia: No NPO: Yes ASA Class: II Final Preanesthetic Review: Meds/Allgs Chart Reviewed, Consent Obtained/Reviewed and Anes Risks/Benef Reviewed Patient Risk: Low Procedure Risk: Low Anesthetic Plan Anesthetic Plan: MAC: Disposition: Standard PACU
[2021-06-08 10:22] VITALS: BP 131/79; PULSE 76; RESP 16; TEMP 36.6; O2SAT 97; BMI 30.7
[2021-06-08] MEDS: Lactated Ringers 1,000 ML 100 ML IVCONT (10:26)
[2021-06-08 12:23] VITALS: BP 93/50; PULSE 71; RESP 18; TEMP 36.2; O2SAT 96
--- NOTE | 2021-06-08 12:28 | P.BOP_ITS ---
Brief Operative Note Date of Service: 06/08/21 Pre-op diagnosis: Screening, Hx of polyps Post-op diagnosis: other (Colon polyps) Procedure: Colonoscopy to the cecum and TI with bx/removal of polyp, hot snare polypectomy in asc. colon and at 40cm, placement of 1 Resolution clip at the asc. colon polypectomy site Surgeon: Jassi Lugo Anesthesia: MAC Was an Coal Pulverizing Operator used for this Procedure?: No Estimated blood loss (mL): 2.0 Pathology: other (A. Cecal polyp B. Ascending colon polyp C. Polyp at 40cm) Condition: stable Disposition: PACU
[2021-06-08 12:38] VITALS: BP 106/65; PULSE 74; RESP 18; O2SAT 97
--- NOTE | 2021-06-08 22:43 | OP_ITS ---
SURGEON: Jassi Lugo MD PREOPERATIVE DIAGNOSIS: POSTOPERATIVE DIAGNOSIS: Colorectal cancer screening and personal history of tubular adenoma of the colon, colon polyps, diverticulosis, normal anastomosis, internal hemorrhoids. PROCEDURE PERFORMED: ESTIMATED BLOOD LOSS: COMPLICATIONS: ANESTHESIA: Monitored anesthesia care. ASSISTANTS: SPECIMENS: PROCEDURES: Colonoscopy to cecum and terminal ileum with snare polypectomy, biopsy and removal of polyp, and placement of a resolution clip on the polypectomy site in the ascending colon. All polypectomies were done with hot snare. Full consent was obtained from him for this, including risks of bleeding and perforation. PREOPERATIVE DIAGNOSES: Colorectal cancer screening and personal history of tubular adenoma of the colon. DESCRIPTION OF PROCEDURE: The patient was placed in the left lateral decubitus position. The digital rectal exam revealed no abnormalities. The Olympus video pediatric colonoscope was entered into the rectum and advanced easily to the cecum. Once in the cecum, I did identify normal-appearing cecal pouch with appendiceal orifice. The entire cecum appeared normal other than an approximately 3 mm polyp, which was biopsied and completely removed with cold biopsy forceps. The terminal ileum was cannulated and appeared normal. The scope was withdrawn back in the colon. The entire cecum and ileocecal valve otherwise appeared normal. The scope was slowly withdrawn assessing all mucosal surfaces carefully. Preparation was excellent. In the proximal ascending colon was an approximately 1.5 cm polyp on a stalk, which was snared and recovered with the retrieval net. The scope was withdrawn from the patient. The scope was then readvanced back into the rectum and to the polypectomy site which appeared clean, without any sign of residual polyp nor bleeding. I did use a single resolution clip with good hemostasis and good deployment. At 40 cm, was an approximately 10 mm polyp, which was snared and recovered by suction. The polypectomy site appeared clean, without any sign of residual polyp nor bleeding. I did not visualize any other polyps, colitis, or angiodysplasia. The anastomosis appeared normal at 20 cm. Proximal to that were some diverticula. In the rectum, scope was retroflexed visualizing small internal hemorrhoids, but no other pathology. The rectal mucosa appeared normal. The scope was straightened and withdrawn from the patient. He tolerated the procedure well and was returned to recovery area in stable condition. IMPRESSION: 1. Colon polyps, status post snare polypectomy with hot snare, and biopsy removal of polyp. 2. Diverticulosis. 3. Normal anastomosis. 4. Internal hemorrhoids. PLAN: The results of the pathology will be checked given his previous history of multiple tubular adenomas removed and today's findings, I would recommend a repeat colonoscopy within 3 years. He was advised not to use any aspirin and NSAIDs for 1 week. MD KATERYNA Orta/ROBERTO / [id number]
== END 2021-06-08 13:00 | disposition home or self-care (01) ==
PROVIDERS: PCP Internal Medicine; Visit Provider Internal Medicine
PROC: 0DJD8ZZ Inspection of Lower Intestinal Tract, Via Natural or Artificial Opening Endoscopic (ICD-10-PCS; CPT 45378; principal; 2021-06-08 11:20)
DX: Z12.11 Encounter for screening for malignant neoplasm of colon (principal); Z86.010 Personal history of colon polyps; D12.0 Benign neoplasm of cecum; D12.2 Benign neoplasm of ascending colon; D12.5 Benign neoplasm of sigmoid colon; K57.30 Diverticulosis of large intestine without perforation or abscess without bleeding; K64.8 Other hemorrhoids; Z98.0 Intestinal bypass and anastomosis status; Z90.49 Acquired absence of other specified parts of digestive tract; I10 Essential (primary) hypertension; Z79.899 Other long term (current) drug therapy; Z87.891 Personal history of nicotine dependence
CPT/HCPCS: 45385; 45380; 88305